=== PATIENT | female | born 1955 | race Caucasian/White ===

== ENCOUNTER 2020-04-18 22:33 | Emergency (ER) | payer SELFPAY ==
[2020-04-18] MEDS ORDERED: NITROGLYCERIN 0.4 MG/TAB 25 TAB/BOTTLE SL PRN (22:50)
[2020-04-18 22:56] LABS: ABSOLUTE EOSINOPHILS # (AUTO) 0.1 10^3/uL (0.0-0.6); ABSOLUTE LYMPHOCYTES (AUTO) 2.1 10^3/uL (0.5-4.7); ABSOLUTE MONOCYTES (AUTO) 0.7 10^3/uL (0.1-1.4); ABSOLUTE NEUT (AUTO) 6.4 10^3/uL (1.7-8.2); BASOPHILS % (AUTO) 0.3 % (0-2); EOSINOPHILS % (AUTO) 1.4 % (0-6); HEMATOCRIT 39.4 % (36.0-47.0); HEMOGLOBIN 13.8 g/dL (12.0-15.5); LYMPHOCYTES % (AUTO) 22.4 % (13-45); MEAN CORPUSCULAR HEMOGLOBIN 29.8 pg (27.0-33.4); MEAN CORPUSCULAR HGB CONC 34.9 g/dL (32.0-36.0); MEAN CORPUSCULAR VOLUME 85 fl (80-97); PLATELET COUNT 262 10^3/uL (150-450); RED BLOOD COUNT 4.63 10^6/uL (3.72-5.28); SEGMENTED NEUTROPHILS % (AUTO) 68.9 % (42-78); TOTAL CELLS COUNTED % (AUTO) 100 %; WHITE BLOOD COUNT 9.4 10^3/uL (4.0-10.5)
[2020-04-18] MEDS ORDERED: MORPHINE SULFATE 10 MG/ML INJ IV ONE (22:59)
[2020-04-18] MEDS ORDERED: NITROGLYCERIN 2% OINTMENT 1 GM PACKET TP ONE (22:59)
[2020-04-18 23:12] LABS: ALBUMIN 4.5 g/dL (3.5-5.0); ALKALINE PHOSPHATASE 78 U/L (38-126); ANION GAP 14 (5-19); ASPARTATE AMINO TRANSFERASE 29 U/L (14-36); BILIRUBIN,TOTAL 0.6 mg/dL (0.2-1.3); BLOOD UREA NITROGEN 19 mg/dL (7-20); CALCIUM 9.5 mg/dL (8.4-10.2); CARBON DIOXIDE 20 mmol/L (22-30); CHLORIDE 104 mmol/L (98-107); CREATINE KINASE 80 U/L (30-135); GLUCOSE 145 mg/dL (75-110); POTASSIUM 3.6 mmol/L (3.6-5.0); TOTAL PROTEIN 7.5 g/dL (6.3-8.2)
[2020-04-18] MEDS ORDERED: ENOXAPARIN SODIUM INJ 120 MG/0.8 ML DISP.SYRIN SUBCUT ONE (23:18)
[2020-04-18] MEDS ORDERED: MORPHINE SULFATE 10 MG/ML INJ IV STA (23:19)
[2020-04-18 23:21] LABS: CREATINE KINASE MB 1.3 ng/mL (<4.55)
--- NOTE | 2020-04-18 23:31 | RADIOLOGY REPORT (SQ) ---
XR CHEST 1 VIEW HISTORY: Chest pain. COMPARISON: None. FINDINGS: The heart size is within normal limits. There is no pulmonary vascular congestion. No consolidation, pleural effusion, or pneumothorax is seen. The bony structures are preserved. IMPRESSION: No evidence of acute cardiopulmonary disease.
[2020-04-18 23:38] LABS: TROPONIN I 0.066 ng/mL
[2020-04-18] MEDS ORDERED: HEPARIN SODIUM,PORCINE/D5W 25,000 UNIT/250 ML RTUINJ IV PRN (23:38)
[2020-04-18] MEDS ORDERED: HEPARIN SOD (PORCINE) 1,000 UNIT/ML 10 ML VIAL IV ONE (23:38)
[2020-04-18] MEDS ORDERED: TICAGRELOR 90 MG TABLET PO STA (23:45)
--- NOTE | 2020-04-18 23:57 | ER Document Report ---
Entered by TOLU VÁSQUEZ SCRIBE 04/18/20 2304 Acting as scribe for:ADORE COPE IV, MD ED General - General Chief Complaint: Chest Pain Stated Complaint: CHEST PAIN Time Seen by Provider: 04/18/20 22:43 Mode of Arrival: Wheelchair Information source: Patient Notes: This 64 year old female patient presents to the ED today with complaints of mid- sternal chest pain at rest that started over an hour ago prior to arrival. Patient states that the pain initially started in her jaw on the right side and radiated to the center of her chest. Pain is 5/5 in severity and described as pressure and a squeezing sensation. Denies any prior cardiac history. She mentions that she is allergic to aspirin and that it makes her tongue swell. Former smoker. Admits to drinking wine this evening. Past Medical History - Social History Smoking Status: Former Smoker Smoking Education Provided: No Family History: Reviewed & Not Pertinent Review of Systems - Review of Systems Constitutional: No symptoms reported EENT: No symptoms reported Cardiovascular: See HPI, Chest pain Respiratory: No symptoms reported Gastrointestinal: No symptoms reported Genitourinary: No symptoms reported Female Genitourinary: No symptoms reported Musculoskeletal: See HPI, Muscle pain Skin: No symptoms reported Hematologic/Lymphatic: No symptoms reported Neurological/Psychological: No symptoms reported -: Yes All other systems reviewed and negative Physical Exam - Vital signs Vitals: Resp 16 04/18/20 22:39 - General General appearance: Alert, Other - In acute distress - HEENT Head: Normocephalic, Atraumatic Eyes: Normal Pupils: PERRL - Respiratory Respiratory status: No respiratory distress Chest status: Nontender Breath sounds: Normal Chest palpation: Normal - Cardiovascular Rhythm: Regular Heart sounds: Normal auscultation Murmur: No Friction rub: No Gallop: None auscultated - Abdominal Inspection: Normal Distension: No distension Bowel sounds: Normal Tenderness: Nontender - Abdomen soft Organomegaly: No organomegaly - Back Back: Normal, Nontender - Extremities General upper extremity: Normal inspection General lower extremity: Normal inspection - Neurological Neuro grossly intact: Yes Orientation: AAOx4 [place] Coma Scale Eye Opening: Spontaneous [place] Coma Scale Verbal: Oriented [place] Coma Scale Motor: Obeys Commands [place] Coma Scale Total: 15 - Psychological Associated symptoms: Normal affect, Normal mood - Skin Skin Temperature: Warm Skin Moisture: Dry Skin Color: Normal Course - Re-evaluation Re-evalutation: 04/18/20 23:48 Patient's pain is decreased slightly with nitroglycerin and morphine. - Vital Signs Vital signs: Temp Pulse Resp BP Pulse Ox 20 141/75 H 95 04/18/20 23:46 04/18/20 23:46 04/18/20 23:46 - Laboratory Result Diagrams: 04/18/20 22:45 04/18/20 22:45 Laboratory results interpreted by me: 04/18/20 22:45 Carbon Dioxide 20 L Glucose 145 H - Diagnostic Test Radiology reviewed: Reports reviewed - EKG Interpretation by Me Additional EKG results interpreted by me: 04/18/20 23:49 EKG obtained on 04/18/2020 at 2233 hrs. was interpreted by this MD. Findings: Sinus rhythm, rate 64, normal axis, P waves proceed QRS complexes, there are ST depressions in 1 and aVL as well as in V4 through V6 and there appears to be elevations and to 3 and aVF that are abnormal in appearance. Impression: Inferior AR - Consults DR. MIKAYLA ESCALANTE Time consulted: 23:03 - DR ESCALANTE VIEWED THE EKG AND STATES HE SEES ST ELEVATION ABNORMALITIES IN II, II, AND AVF. RECOMMENDED TX TO FACILITY RE: STEMI FOR INTERVENTIONAL CARDIOLOGY Reason for consultation: 04/18/20 23:50 ABNORMAL APPEARING EKG, SPECIFICALLY, ST DEPRESSION IN I AND AVL DR. BURKS, RECHECKER, [facility] Time consulted: 23:20 - ACCEPTED PT FOR TRANSFER, RECOMMENED HEPARIN AND BRILINTA Reason for consultation: 04/18/20 23:53 STEMI Critical Care Note - Critical Care Note Total time excluding time spent on procedures (mins): 120 - STEMI Discharge - Discharge Clinical Impression: STEMI (ST elevation myocardial infarction) Qualifiers: Involved coronary artery: right coronary artery Qualified Code(s): I21.11 - ST elevation (STEMI) myocardial infarction involving right coronary artery Condition: Stable Disposition: [facility] I personally performed the services described in the documentation, reviewed and edited the documentation which was dictated to the scribe in my presence, and it accurately records my words and actions.
[2020-04-19 00:03] LABS: INTERNATIONAL RATION (INR) 0.93; PROTHROMBIN TIME 12.7 SEC (11.4-15.4)
[2020-04-19 00:04] LABS: PARTIAL THROMBOPLASTIN TIME 34.7 SEC (23.5-35.8)
[2020-04-19] MEDS ORDERED: ONDANSETRON HCL INJ/PF 4 MG/2 ML SDV IV ONE (00:09)
[2020-04-19 01:19] VITALS: BP 131/76
--- NOTE | 2020-04-19 08:34 | EKG REPORT ---
SEVERITY:- ABNORMAL ECG - SINUS RHYTHM INFERIOR INFARCT, AGE INDETERMINATE NONSPECIFIC T ABNORMALITIES, ANT-LAT LEADS : Confirmed by: Ricardo Muñoz MD 19-Apr-2020 08:33:21
== END 2020-04-19 00:43 | disposition short-term general hospital (02) ==
LOC: ER 22:33
DX: I21.11 ST elevation (STEMI) myocardial infarction involving right coronary artery (principal); R07.9 Chest pain, unspecified; M79.10 Myalgia, unspecified site; Z87.891 Personal history of nicotine dependence; Z88.8 Allergy status to other drugs, medicaments and biological substances
CPT/HCPCS: 93005; 99285; 96374; 96375; 36415; 82553; 80307; 82550; 83690; 85025; 85610; 85730; 80053; 84484; 71045; 93010; J1644 ×2; J2270; J2405; J3490